=== PATIENT | female | born 1955 | race Caucasian/White ===

== ENCOUNTER 2018-02-06 10:19 | Emergency (ER) | payer OTHER ==
[~2018-02-06] VITALS: Ht 170.2 cm; Wt 62.6 kg
[~2018-02-06 10:19] MED LIST: DIVALPROEX SOD500 M2 PO; HYDROCHLOROTH12.5 M3 PO; INDOMETHACIN50 M1 PO; LOSARTAN POTASS50 M1 PO
--- NOTE | 2018-02-06 10:36 | ED UPPER/LOWER EXTREMITY COMPL ---
History of Present Illness General Chief Complaint: Lower Extremity Problems Stated Complaint: SIB WALK IN ?BLOOD CLOT IN LOWER LEFT LEG Source: patient Exam Limitations: no limitations Vital Signs & Intake/Output Vital Signs & Intake/Output Vital Signs Date Time Temp Pulse Resp B/P B/P Pulse O2 O2 Flow FiO2 Mean Ox Delivery Rate 02/06 1308 98.8 66 20 116/73 96 Room Air 02/06 1024 98.1 102 18 154/93 99 Room Air Allergies Coded Allergies: valacyclovir (Mild, HIVES 07/09/16) Reconcile Medications Cephalexin (Keflex) 500 MG CAPSULE 1 CAP PO TID CELLULITIS Divalproex Sodium 500 MG TABLET.DR 1 TAB PO BID UNKNOWN (Reported) Hydrochlorothiazide 12.5 MG CAPSULE 1 CAP PO DAILY WATER PILL (Reported) Indomethacin 50 MG CAPSULE 1 CAP PO TID UNKNOWN (Reported) with food Losartan Potassium 50 MG TABLET 1 TAB PO DAILY HEART (Reported) Triage Note: PT TO ED FOR LEFT LOWER LEG PAIN, SWELLING AND REDNESS THAT BEGAN THURSDAY NIGHT, NO KNOWN INJURY. Triage Nurses Notes Reviewed? yes Onset: Abrupt Duration: day(s):, constant Timing: recent history Severity: moderate, severe No Modifying Factors: none HPI: 62-year-old female comes into the emergency room for evaluation of left ankle pain and swelling. Some associated pain. She was seen in the [facility] and to have a ultrasound to rule out DVT. She denies any trauma. Denies any fever vomiting chills. Denies any other associated symptoms. (Nacho Powell) Past History Travel History Traveled to [place] past 21 day No Medical History Any Pertinent Medical History? see below for history Neurological: migraine, SEIZURES EENT: NONE Cardiovascular: hypertension Respiratory: NONE Gastrointestinal: NONE Hepatic: NONE Renal: NONE Musculoskeletal: NONE, ARTHRITIS Psychiatric: NONE Endocrine: NONE Blood Disorders: NONE Cancer(s): NONE Surgical History Surgical History: non-contributory Psychosocial History Who do you live with Significant Other Services at Home None What is your primary language Slovak Tobacco Use: Never used ETOH Use: denies use Illicit Drug Use: denies illicit drug use Family History Hx Contributory? No (Nacho Powell) Review of Systems Review of Systems Constitutional: Reports: no symptoms. EENTM: Reports: no symptoms. Respiratory: Reports: no symptoms. Cardiovascular: Reports: no symptoms. Gastrointestinal/Abdominal: Reports: no symptoms. Genitourinary: Reports: no symptoms. Musculoskeletal: Reports: see HPI. Skin: Reports: see HPI. Neurological/Psychological: Reports: no symptoms. Hematologic/Endocrine: Reports: no symptoms. Immunological: Reports: no symptoms. All Other Systems: Reviewed and Negative (Nacho Powell) Physical Exam Physical Exam General Appearance: well developed/nourished, mild distress Head: atraumatic Eyes: Bilateral: normal appearance. Ears, Nose, Throat: normal ENT inspection, hearing grossly normal Neck: normal inspection Cardiovascular/Respiratory: no respiratory distress Back: normal inspection Leg Left: swelling left lower leg, dorsalis pedis pulse 2+, mild erythema, Skin: intact, normal color, warm/dry (Nacho Powell) Progress Differential Diagnosis: contusion, dislocation, DVT, fracture, septic arthritis, sprain, tendon injury Plan of Care: Orders Procedure Date/time Status US-UNILATERAL VENOUS DOPPLER 02/06 1035 Active XRY-ANKLE 3 OR MORE VIEWS L 02/06 1035 Active Diagnostic Imaging: Viewed by Me: Radiology Read, Ultrasound. Discussed w/RAD: Radiology Read, Ultrasound. Radiology Impression: PATIENT: ZHAO MORRIS PRESENT AGE : 62 PATIENT ACCOUNT NO: [id number] : 56 LOCATION: [facility] ORDERING PHYSICIAN: Nacho DENNIS SERVICE DATE: 02/06/18 EXAM TYPE: US - US -UNILATERAL VENOUS DOPPLER EXAMINATION: US TRIPLEX LOWER EXTREMITY, LEFT CLINICAL INFORMATION: Left leg swelling, rule out DVT. COMPARISON: None TECHNIQUE: Color-flow triplex imaging with spectral analysis and compression Doppler were performed on the lower extremity. FINDINGS: Respiratory variation, normal compression and augmented flow are noted throughout the lower extremity. The visualized common femoral vein, superficial femoral vein, profunda femoral vein, popliteal vein and midcalf peroneal and posterior tibial venous segments show no evidence of deep venous thrombosis. There is no Segal's cyst. IMPRESSION : Normal triplex scan without evidence of deep venous thrombosis involving the lower extremity. 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 <Electronically signed in Other Vendor System> SIGNED BY: Slava Cifuentes MD 02/06/18 4821 (Nacho Powell) Departure Departure Disposition: HOME OR SELF CARE Condition: Stable Clinical Impression Primary Impression: Cellulitis Referrals: Alice MORENO,Slava Rodrigues (PCP/Family) Additional Instructions: Take Keflex as prescribed. Elevate your leg. Return if any concerns worsening symptoms. Please go over all results of today's visit with your primary care doctor. Contact your primary care doctor to let them know you were here in the emergency room. There may be nonspecific findings which may not be related to your visit today here in the emergency room but may require further evaluation and chronic monitoring by your primary care doctor. If you had a laceration today the chance of foreign body always remains. You should follow-up with your primary care doctor for recheck in 3-5 days for a wound check. If you had an x-ray done there is a chance that a fracture could have been missed on initial read and you should follow-up with your primary care doctor for repeat x-rays if symptoms persist. If your blood pressure was elevated here in the emergency room please have rechecked by [facility] primary care doctor within the next 48. If you were prescribed a narcotic here in the emergency room or any type of controlled substances you're not allowed to drive while taking this medication or operate any type of heavy machinery. Narcotics can make you feel lightheaded dizziness nausea and can cause constipation. You may need to case picker a stool softener. Thank you for choosing [facility] emergency room. Please return to the emergency room immediately if you have any other concerns worsening of symptoms. Departure Forms: Customer Survey General Discharge Information Prescriptions: Current Visit Scripts Cephalexin (Keflex) 1 CAP PO TID #21 CAP Comments 02/06/2018 1:46:46 PM Patient clinically looks well. Patient is in no apparent distress. Patient is nontoxic-appearing. No evidence of acute DVT or fracture. Some redness to the left lower leg. Consistent likely with early cellulitis. Started on Keflex. Elevate leg. Return if any other concerns. (Nacho Powell) PA/CONCRETE SMOOTHER Co-Sign Statement Statement: ED Attending supervision documentation- [] I saw and evaluated the patient. I have also reviewed all the pertinent lab results and diagnostic results. I agree with the findings and the plan of care as documented in the PA's/CONCRETE SMOOTHER's documentation. [X] I have reviewed the ED Record and agree with the PA's/CONCRETE SMOOTHER's documentation. [] Additions or exceptions (if any) to the PAs/CONCRETE SMOOTHER's note and plan are summarized below: [] (Michel MORENO,Anmol Mcallister)
--- NOTE | 2018-02-06 12:23 | RADIOLOGY REPORT ---
EXAMINATION: XR ANKLE, LEFT CLINICAL INFORMATION: Left ankle swelling. COMPARISON: None TECHNIQUE: AP, lateral, and mortise views of the left ankle. FINDINGS: Mild soft tissue swelling about the ankle is seen. No underlying fracture or dislocation is present. The ankle mortise is symmetric and intact. No ankle joint effusion is seen. No radiopaque foreign body is seen in the soft tissues. IMPRESSION: Mild soft tissue swelling of the ankle. No acute fracture or dislocation.
[2018-02-06 13:08] VITALS: BP 116/73
--- NOTE | 2018-02-06 13:12 | ULTRASOUND REPORT ---
EXAMINATION: US TRIPLEX LOWER EXTREMITY, LEFT CLINICAL INFORMATION: Left leg swelling, rule out DVT. COMPARISON: None TECHNIQUE: Color-flow triplex imaging with spectral analysis and compression Doppler were performed on the lower extremity. FINDINGS: Respiratory variation, normal compression and augmented flow are noted throughout the lower extremity. The visualized common femoral vein, superficial femoral vein, profunda femoral vein, popliteal vein and midcalf peroneal and posterior tibial venous segments show no evidence of deep venous thrombosis. There is no Segal's cyst. IMPRESSION: Normal triplex scan without evidence of deep venous thrombosis involving the lower extremity.
[2018-02-06] MEDS ORDERED: KEFLEX500 M1 PO (13:28)
== END 2018-02-06 13:37 ==
LOC: ERH 10:19
DX: L03.116 Cellulitis of left lower limb (principal)
CPT/HCPCS: 73610-LT